=== PATIENT | female | born 1940 | race Caucasian/White ===

== ENCOUNTER 2019-03-22 18:50 | Emergency (ER) | payer MEDICARE, OTHER ==
[~2019-03-22] VITALS: Ht 152.4 cm; Wt 72.2 kg
[2019-03-22 18:54] VITALS: BP 173/58
[2019-03-22] MEDS ORDERED: CEPH-572 PO (19:38)
== END 2019-03-22 20:01 | disposition home or self-care (01) ==
LOC: ER 18:51
DX: L02.426 Furuncle of left lower limb (principal); L03.116 Cellulitis of left lower limb; E78.00 Pure hypercholesterolemia, unspecified; I10 Essential (primary) hypertension; K21.9 Gastro-esophageal reflux disease without esophagitis; Z88.5 Allergy status to narcotic agent
CPT/HCPCS: 99283

== ENCOUNTER 2023-09-23 12:16 | Emergency (ER) | payer BC, MEDICARE, OTHER ==
[~2023-09-23] VITALS: Ht 149.9 cm; Wt 69.8 kg
[2023-09-23 12:26] VITALS: BP 106/71; PULSE 67; RESP 16; TEMP 98.5; O2SAT 97
== END 2023-09-23 15:59 | disposition home or self-care (01) ==
LOC: ER 12:16
DX: G44.209 Tension-type headache, unspecified, not intractable (principal); R42 Dizziness and giddiness; E78.00 Pure hypercholesterolemia, unspecified; I10 Essential (primary) hypertension; Z88.8 Allergy status to other drugs, medicaments and biological substances
CPT/HCPCS: 70450; 99284